=== PATIENT | female | born 1975 | race African-American/Black ===

== ENCOUNTER 2017-10-26 03:59 | Emergency (ER) | payer MEDICAID, MEDICARE ==
[~2017-10-26] VITALS: Ht 167.6 cm; Wt 56.0 kg
[2017-10-26 04:01] VITALS: BP 133/87
== END 2017-10-26 05:50 | disposition left against medical advice (07) ==
LOC: ER 04:41
DX: Z53.21 Procedure and treatment not carried out due to patient leaving prior to being seen by health care provider (principal)

== ENCOUNTER 2017-11-27 02:44 | Emergency (ER) | payer MEDICARE ==
[~2017-11-27] VITALS: Ht 160 cm; Wt 84.0 kg
[2017-11-27 02:50] VITALS: BP 133/84
== END 2017-11-27 02:50 | disposition left against medical advice (07) ==
LOC: ER 02:44
DX: R07.9 Chest pain, unspecified (principal); Z53.21 Procedure and treatment not carried out due to patient leaving prior to being seen by health care provider
CPT/HCPCS: 93005

== ENCOUNTER 2017-12-17 23:37 | Emergency (ER) | payer MEDICARE ==
[~2017-12-17] VITALS: Ht 162.6 cm; Wt 82.0 kg
[2017-12-18] MEDS ORDERED: KETOROLAC 60MG/2ML VIAL IM ONE (01:00)
[2017-12-18] MEDS ORDERED: CYCLOBENZAPRINE 10MG TABLET PO ONE (01:00)
[2017-12-18 02:40] VITALS: BP 140/90
== END 2017-12-18 02:43 | disposition home or self-care (01) ==
LOC: ER 23:37
DX: S39.012A Strain of muscle, fascia and tendon of lower back, initial encounter (principal); S29.012A Strain of muscle and tendon of back wall of thorax, initial encounter; F17.200 Nicotine dependence, unspecified, uncomplicated; J45.909 Unspecified asthma, uncomplicated; V89.2XXA Person injured in unspecified motor-vehicle accident, traffic, initial encounter; Y93.89 Activity, other specified; Y92.89 Other specified places as the place of occurrence of the external cause; Y99.8 Other external cause status
CPT/HCPCS: 81025; 96372; 99283; J1885; Z7610

== ENCOUNTER 2018-03-28 09:35 | Emergency (ER) | payer MEDICARE ==
[~2018-03-28] VITALS: Ht 170.2 cm; Wt 89.0 kg
[2018-03-28 10:39] LABS: BASOPHILS % 0.3 % (0.0-2.0); EOSINOPHILS % 1.4 % (0.0-5.0); HEMATOCRIT. 37.8 % (36.0-48.0); HEMOGLOBIN. 12.8 g/dL (12.0-16.0); LYMPHOCYTES % 25.7 % (20.0-50.0); MEAN CORPUSCULAR HEMOGLOBIN 30.7 pg (28.0-32.0); MEAN CORPUSCULAR VOLUME 90.2 fL (81.0-99.0); MEAN PLATELET VOLUME 10.8 fl (7.4-10.4); NEUTROPHILS % 62.6 % (40.0-76.0); PLATELET 172 x1000/uL (130-400); RED BLOOD CELL COUNT 4.19 mill/uL (4.2-5.4); RED CELL DISTRIBUTION WIDTH 14.1 % (11.6-14.6)
[2018-03-28 10:47] LABS: CHLORIDE 108 mEq/L (98-107)
[2018-03-28 10:54] LABS: ETHANOL BLOOD 90 mg/dL
[2018-03-28 10:56] VITALS: BP 132/93
== END 2018-03-28 14:27 | disposition left against medical advice (07) ==
LOC: ER 09:35
DX: F10.129 Alcohol abuse with intoxication, unspecified (principal); Y90.4 Blood alcohol level of 80-99 mg/100 ml; J45.909 Unspecified asthma, uncomplicated
CPT/HCPCS: 36415; 80053; 82962; 85025; 99284; G0482; Z7610

== ENCOUNTER 2022-04-15 19:35 | Emergency (ER) | payer MEDICARE, OTHER ==
[~2022-04-15] VITALS: Ht 165.1 cm; Wt 86.0 kg
[2022-04-15 19:38] VITALS: BP 159/84
== END 2022-04-15 20:23 | disposition left against medical advice (07) ==
LOC: ER 19:35
DX: Z53.21 Procedure and treatment not carried out due to patient leaving prior to being seen by health care provider (principal)